=== PATIENT | female | born 1940 | race Two or more races ===

== ENCOUNTER 2016-10-14 20:23 | Emergency (ER) | payer SELFPAY ==
[~2016-10-14] VITALS: Ht 157.5 cm; Wt 54.4 kg
[2016-10-14 21:59] VITALS: BP 156/75
== END 2016-10-14 21:50 | disposition home or self-care (01) ==
LOC: ER 20:24
DX: S16.1XXA Strain of muscle, fascia and tendon at neck level, initial encounter (principal); S50.01XA Contusion of right elbow, initial encounter; S30.1XXA Contusion of abdominal wall, initial encounter; M25.561 Pain in right knee; M25.562 Pain in left knee; R51 Headache; I10 Essential (primary) hypertension; V43.62XA Car passenger injured in collision with other type car in traffic accident, initial encounter; Y93.89 Activity, other specified; Y92.488 Other paved roadways as the place of occurrence of the external cause; Y99.8 Other external cause status
CPT/HCPCS: 99281; A4606; Z7610; Z7502